=== PATIENT | female | born 1980 | race Caucasian/White ===

== ENCOUNTER 2021-12-16 17:29 | Emergency (ER) | payer OTHER, MEDICAID, SELFPAY ==
--- NOTE | ~2021-12-16 | CT_ITS ---
EXAMINATION: CT ABDOMEN AND PELVIS WITHOUT CONTRAST CLINICAL INFORMATION: Abdominal pain COMPARISON: None TECHNIQUE: Multidetector volumetric imaging was performed from the superior aspect of the liver through the pubic symphysis. Sagittal and coronal reformatted images were obtained on the technologist's workstation. This CT examination was performed using dose optimization techniques as appropriate, variously including the following: *Automated exposure control *Adjustment of mA and/or kV according to patient size (this includes techniques or standardized protocols for targeted exams where dose is matched to indication/reason for exam; i.e. extremities or head) *Use of iterative reconstruction technique DLP: 527 mGy-cm FINDINGS: LUNG BASES: The visualized lung bases are unremarkable. LIVER, GALLBLADDER, AND BILIARY TREE: The liver is normal in size, shape, and attenuation. No focal hepatic lesion or biliary ductal dilatation is present. Gallbladder unremarkable. PANCREAS: Unremarkable. SPLEEN: Unremarkable. ADRENAL GLANDS: Coarse calcifications throughout the right adrenal gland. Left adrenal gland is normal. KIDNEYS AND URETERS: The kidneys are normal in size, shape, and attenuation. No hydronephrosis or hydroureter. There are bilateral nonobstructive intrarenal calculi numbering at least 5 within the left kidney and 3 within the right kidney, all punctate in size. No ureteral calculi. No perinephric stranding. BLADDER: Unremarkable. GASTROINTESTINAL TRACT: The small and large bowel are unremarkable. The appendix is unremarkable. ABDOMINAL WALL: No significant hernia is appreciated. LYMPH NODES: Normal. VASCULAR: Unremarkable. PELVIC VISCERA: Hysterectomy. Ovaries unremarkable. OSSEOUS STRUCTURES: No acute or suspicious osseous abnormalities. Loss of disc space height associated endplate osteophytes present at L4-L5. CT/CT abdomen pelvis wo con IMPRESSION: * No acute findings within the abdomen or pelvis to explain the patient's symptomatology. * Numerous bilateral punctate nonobstructive intrarenal calculi. 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 * Hysterectomy.
--- NOTE | ~2021-12-16 | US_ITS ---
EXAMINATION: US PELVIS CLINICAL INFORMATION: Adnexal pain COMPARISON: None TECHNIQUE: Ultrasound of the pelvis is performed using both transabdominal and transvaginal transducers along with Doppler. Transvaginal imaging is performed due to inadequate visualization transabdominally. FINDINGS: Uterus: Surgically absent. Adnexa: Both ovaries are visualized. There is normal color flow to the adnexa. There is no ovarian torsion. There is no pelvic ascites or fluid collection. Right ovary measures 3.6 x 2.1 x 2.2 cm cm. No right adnexal mass. Normal arterial and venous spectral Doppler waveforms. There is a crenulated hypoechoic cyst 2.3 cm in greatest dimension in the left ovary consistent with a corpus luteum cyst. Left ovary measures 2.4 x 1.1 x 1.8 cm. No left adnexal mass. Normal arterial and venous spectral Doppler waveforms. US/US pelvic and transvaginal IMPRESSION: Normal ovaries bilaterally. There is a corpus luteum cyst in the right ovary, a normal benign physiologic finding for which no imaging follow-up is recommended.
[2021-12-16 20:02] VITALS: BP 132/94; PULSE 68; RESP 18; TEMP 37.2; O2SAT 99; BMI 25.7
[2021-12-16 20:17] LABS: MANUAL DIFF FLAG NO
[2021-12-16 20:18] LABS: Basophils Percent Auto 0.3 % (0-2); Eosinophils Absolute Auto 0.1 X10*3/uL (0.0-0.4); Eosinophils Percent Auto 1.6 % (0-4); Hemoglobin 14.9 g/dl (12.0-16.0); Imm Gran Abs Auto 0.02 X10*3/uL (0.00-0.03); Imm Gran Pct Auto 0.3 % (0.0-0.4); Lymphocytes Absolute Auto 2.5 X10*3/uL (1.2-4.9); Mean Corpuscular HGB Conc 33.9 g/dl (31.0-35.0); Mean Corpuscular Hemoglobin 30.3 pg (27.0-33.0); Mean Corpuscular Volume 89.6 fL (80.0-98.0); Mean Platelet Volume 8.8 fL (9.4-12.3); Monocytes Absolute Auto 0.5 X10*3/uL (0.1-1.2); Monocytes Percent Auto 6.4 % (2-11); Neutrophils Percent Auto 56.4 % (45-73); Platelet Count 302 X10*3/uL (160-400); Red Blood Count 4.91 X10*6/uL (4.20-5.50); Red Cell Distribution Width 11.9 % (11.0-16.0); White Blood Count 7.1 X10*3/uL (4.8-10.8)
[2021-12-16 20:32] LABS: Alanine Aminotransferase 24 U/L (0-31); Albumin Level 4.4 g/dL (3.5-5.0); Alkaline Phosphatase 59 U/L (39-117); Anion Gap 12 (12-20); Aspartate Amino Transferase 20 U/L (5-31); Bilirubin Total 0.4 mg/dL (0.0-1.0); Blood Urea Nitrogen 13 mg/dL (9-16); Calcium 9.4 mg/dL (8.4-10.2); Carbon Dioxide 25 mmol/L (22-29); Chloride 105 mmol/L (96-108); Estimated Glomerular Filt Rate > 60; Glucose Random 90 mg/dL (60-115); Potassium 4.2 mmol/L (3.3-5.1); Sodium 138 mmol/L (135-145); Total Protein 7.4 g/dL (6.5-8.0)
--- NOTE | 2021-12-16 22:47 | ED_ITS ---
HPI - Abdominal Pain General Chief Complaint: Abdominal Pain Stated Complaint: Abdominal pain Source: patient Mode of arrival: ambulatory Limitations: no limitations History of Present Illness HPI narrative: 41-year-old female presents with sudden onset of severe lower abdominal pain that started approximately 4 days ago. She had called her PCP and was referred to the emergency department for CT scan as she does have polycystic ovarian syndrome. She states that her abdomen has been bloated since the pain started and has having a difficult time with bowel movements. MD elicited complaint: abdominal pain Pertinent past history: none Onset (ago): day(s) (4) Pain Consistency: constant Location: suprapubic Severity: severe Pain scale (0-10): 10 Quality: stabbing and sharp Radiation: LLQ Migration to: no migration Exacerbating factors: bowel movement and movement Relieving factors: nothing Associated symptoms: diarrhea Treatments prior to arrival: NSAIDs Related Data Home Medications Medication Instructions Recorded Confirmed bupropion HCl 75 mg tablet 50 mg PO DAILY 12/16/21 12/16/21 metformin 500 mg tablet 200 mg PO DAILY 12/16/21 12/16/21 Previous Rx's Medication Instructions Recorded oxycodone 5 mg tablet 5 mg PO Q8H PRN pain 3 days #9 tabs 12/17/21 tamsulosin 0.4 mg capsule (Flomax) 0.4 mg PO DAILY 14 days #14 caps 12/17/21 Allergies Allergy/AdvReac Type Severity Reaction Status Date / Time No Known Allergies Allergy Unknown Unverified 03/25/20 15:50 Review of Systems Review of Systems Constitutional: No Fever, No Chills ENT/Mouth: No Ear Pain, No Hoarseness, No sore throat Eyes: No Eye Pain, No Swelling, No Redness, No Foreign Body Cardiovascular: No Chest Pain, No SOB Respiratory: No Cough, No Dyspnea Gastrointestinal: No Nausea, No Vomiting, positive Diarrhea, positive abdominal Pain Genitourinary: Positive adnexal tenderness, No Dysuria, No Hematuria Musculoskeletal: No joint pain, No Myalgias, No Joint Swelling Skin: No Skin lacerations, No rash Neuro: No Weakness, No Numbness, No Paresthesias, No Loss of Consciousness, No Dizziness, No Headache Psych: No Anxiety/Panic, No Depression Heme/Lymph: no easy bruising, no Lymphadenopathy Endocrine: No Polyuria, No Polydipsia Yes all other systems are reviewed and are negative PMFSH Past Medical History Attestation statement: The following information was validated with the patient. Source: old records reviewed Social History Social History Advance Directives: No Patient : No Physical Exam ED Vital Signs: Vital Signs - 24 hr 12/16/21 20:02 12/16/21 23:59 12/17/21 00:46 Temperature 98.9 F Pulse Rate 68 59 Respiratory Rate 18 16 18 Blood Pressure 132/94 H 120/81 Pulse Oximetry 99 100 Oxygen Delivery Method Room Air Room Air BMI result Body Mass Index 25.7 Appearance: Alert. Oriented X3. Moderate distress. Eyes: Pupils equal, round and reactive to light. ENT: Pharynx normal. Neck: Normal inspection. Neck supple. CVS: Normal heart rate and rhythm. Pulses normal. Respiratory: No respiratory distress. Breath sounds normal. Abdomen: Soft and suprapubic tenderness with left adnexal tenderness. Skin: Skin warm and dry. Normal skin color. Normal skin turgor. Extremities: No lower extremity edema. Gait well balanced well coordinated. Neuro: No motor deficit. No sensory deficit. Cranial nerves 2-12 intact. Course Course Course Narrative: 41-year-old female presents with severe abdominal pain that started suddenly approximately 4 days ago. Pain is colicky and has not resolved. Does have a history of polycystic ovarian syndrome. She has had a partial hysterectomy. She is concerned about ovarian torsion. Will order CT scan of abdomen and pelvis with pelvic ultrasound. Labs drawn while patient was in the emergency department waiting room. Labs are unremarkable. However physical exam indicates adnexal tenderness as well as suprapubic tenderness. 01:18 CT scan indicates bilateral renal stones. Will treat with Flomax and give oxycodone for pain management. Will have patient follow-up with Urology. Patient verbalized understanding of and agrees to plan of care to discharge home. Verbalized understanding of signs and symptoms indicating need for emergent intervention MDM - Abdominal Pain Differential Diagnosis Differential diagnosis: Likely abdominal pain, acute appendicitis, calculus of kidney, constipation and ovarian cyst Differential diagnosis narrative:: Ovarian torsion Medical Records Attestation: I reviewed the patient's medical records. Lab Data Attestation: I reviewed the patient's lab results. Result diagrams: 12/16/21 20:08 12/16/21 20:08 Labs: Lab Results 12/16/21 12/16/21 12/17/21 Range/Units 20:08 20:08 00:03 WBC 7.1 (4.8-10.8) X10*3/uL RBC 4.91 (4.20-5.50) X10*6/uL Hgb 14.9 (12.0-16.0) g/dl Hct 44.0 (37.0-47.0) % MCV 89.6 (80.0-98.0) fL MCH 30.3 (27.0-33.0) pg MCHC 33.9 (31.0-35.0) g/dl RDW 11.9 (11.0-16.0) % Plt Count 302 (160-400) X10*3/uL MPV 8.8 L (9.4-12.3) fL Immature Gran % (Auto) 0.3 (0.0-0.4) % Neut % (Auto) 56.4 (45-73) % Lymph % (Auto) 35.0 (20-40) % [place] % (Auto) 6.4 (2-11) % Eos % (Auto) 1.6 (0-4) % Baso % (Auto) 0.3 (0-2) % Lymph # (Auto) 2.5 (1.2-4.9) X10*3/uL [place] # (Auto) 0.5 (0.1-1.2) X10*3/uL Eos # (Auto) 0.1 (0.0-0.4) X10*3/uL Baso # (Auto) 0.0 (0.0-0.2) X10*3/uL Abs Immat Gran (auto) 0.02 (0.00-0.03) X10*3/uL Absolute Neuts (auto) 4.0 (2.0-8.3) x10*3/uL Absolute Nucleated RBC 0.000 (0.0-0.012) X10*3/uL Nucleated RBC % (auto) 0.0 (0.0-0.2) /100WBC Sodium 138 (135-145) mmol/L Potassium 4.2 (3.3-5.1) mmol/L Chloride 105 (96-108) mmol/L Carbon Dioxide 25 (22-29) mmol/L Anion Gap 12 (12-20) BUN 13 (9-16) mg/dL Creatinine 0.75 (0.5-1.4) mg/dL Estim Creat Clear Calc 99.0 Estimated GFR > 60 Random Glucose 90 (60-115) mg/dL Calcium 9.4 (8.4-10.2) mg/dL Total Bilirubin 0.4 (0.0-1.0) mg/dL AST 20 (5-31) U/L ALT 24 (0-31) U/L Alkaline Phosphatase 59 (39-117) U/L Total Protein 7.4 (6.5-8.0) g/dL Albumin 4.4 (3.5-5.0) g/dL Urine Color YELLOW Urine Appearance CLOUDY Urine pH 7.0 (5.0-8.0) Ur Specific [place] 1.020 (1.005-1.025) Urine Protein NEG (NEG-TRACE) MG/DL Urine Glucose (UA) NEG (NEG) MG/DL Urine Ketones NEG (NEG) MG/DL Urine Blood NEG (NEG) Urine Nitrite NEG (NEG) Ur Leukocyte Esterase NEG (NEG) Imaging Data Pelvic ultrasound: Attestation: I personally reviewed and interpreted this imaging study as follows: Radiologist's impression: EXAMINATION:? US PELVIS CLINICAL INFORMATION:? Adnexal pain COMPARISON: None TECHNIQUE: Ultrasound of the pelvis is performed using both transabdominal and transvaginal transducers along with Doppler. Transvaginal imaging is performed due to inadequate visualization transabdominally. FINDINGS: Uterus: Surgically absent. Adnexa: Both ovaries are visualized. There is normal color flow to the adnexa. There is no ovarian torsion.? There is no pelvic ascites or fluid collection. Right ovary measures 3.6 x 2.1 x 2.2 cm cm. No right adnexal mass. Normal arterial and venous spectral Doppler waveforms. There is a crenulated hypoechoic cyst 2.3 cm in greatest dimension in the left ovary consistent with a corpus luteum cyst. Left ovary measures 2.4 x 1.1 x 1.8 cm. No left adnexal mass. Normal arterial and venous spectral Doppler waveforms. US/US pelvic and transvaginal IMPRESSION: Normal ovaries bilaterally. ? There is a corpus luteum cyst in the right ovary, a normal benign physiologic finding for which no imaging follow-up is recommended. CT abdomen pelvis: Attestation: I personally reviewed and interpreted this imaging study as follows: Radiologist's impression: FINDINGS: LUNG BASES: The visualized lung bases are unremarkable.? LIVER, GALLBLADDER, AND BILIARY TREE: The liver is normal in size, shape, and attenuation. No focal hepatic lesion or biliary ductal dilatation is present. Gallbladder unremarkable.? PANCREAS: Unremarkable.? SPLEEN: Unremarkable.? ADRENAL GLANDS: Coarse calcifications throughout the right adrenal gland. Left adrenal gland is normal.? KIDNEYS AND URETERS: The kidneys are normal in size, shape, and attenuation. No hydronephrosis or hydroureter. There are bilateral nonobstructive intrarenal calculi numbering at least 5 within the left kidney and 3 within the right kidney, all punctate in size. No ureteral calculi. No perinephric stranding. ? BLADDER: Unremarkable.? GASTROINTESTINAL TRACT: The small and large bowel are unremarkable. The appendix is unremarkable.? ABDOMINAL WALL: No significant hernia is appreciated.? LYMPH NODES: Normal. VASCULAR: Unremarkable. PELVIC VISCERA: Hysterectomy. Ovaries unremarkable.? OSSEOUS STRUCTURES: No acute or suspicious osseous abnormalities. Loss of disc space height associated endplate osteophytes present at L4-L5. CT/CT abdomen pelvis wo con IMPRESSION: *? No acute findings within the abdomen or pelvis to explain the patient's symptomatology. *? Numerous bilateral punctate nonobstructive intrarenal calculi. *? 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 *? Hysterectomy. Discharge Plan Discharge Clinical Impression: Calculus of kidney Patient Disposition: Home, Self-Care Instructions: Kidney Stones (ED) Additional Instructions: You were evaluated for abdominal pain. CT scan indicates bilateral kidney stones. Please take Flomax on a daily for the next 14 days. Take oxycodone 5 mg every 8 hours as needed for pain management. This medication is a narcotic and has high risk for addiction and abuse. Do not drive or operate machinery while taking this medication. This medication can cause drowsiness, increased risk for falls, delay reaction time, and cause constipation. Please take MiraLax daily while taking this medication. MiraLax can be purchased o [id number] Follow-up with Dr. Vinson. Dr. Vinson is urologist. Please call and request an appointment. 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 Please follow-up with primary care regarding this incidental finding. Thank you for choosing this emergency department for evaluation. Please follow-up with primary care physician as needed. Return to the emergency department for any new, concerning, or worsening symptoms. Prescriptions: New tamsulosin [Flomax] 0.4 mg capsule 0.4 mg PO DAILY 14 Days Qty: 14 0RF oxycodone 5 mg tablet 5 mg PO Q8H PRN (Reason: pain) 3 Days Qty: 9 0RF Rx Instructions: Partial Fill upon patient request. Bilateral renal stones No Action metformin 500 mg Tablet 200 mg PO DAILY bupropion HCl [Wellbutrin] 75 mg Tablet 50 mg PO DAILY Referrals: Rick Vinson MD [Physician] - (Bilateral renal stones) Dominick Richardson MD [Primary Care Provider] - Stand Alone Forms: Work/School Release
[2021-12-16 23:59] VITALS: BP 120/81; PULSE 59; RESP 16; O2SAT 100
--- NOTE | 2021-12-17 00:04 | PC.NURSE ---
pt a&ox3, vss, c/o 01/15 pain lower abd/pelvic starting 12/13/21. urine sample obtained and sent to lab.
[2021-12-17 00:10] LABS: Appearance Urine CLOUDY; Color Urine YELLOW; Glucose Urine UA NEG (NEG); Leukocyte Esterase Urine NEG (NEG); Nitrite Urine NEG (NEG); Urine Blood NEG (NEG); Urine Ketones NEG (NEG); Urine Protein NEG (NEG-TRACE)
[2021-12-17 00:46] VITALS: RESP 18
[2021-12-17] MEDS: Morphine Sulfate 4 MG/ML CARTRIDGE IVPUSH (00:46)
--- NOTE | 2021-12-17 00:49 | PC.NURSE ---
pt medicated for 7/[address] results.
[2021-12-17] MEDS: oxyCODONE HCl Immed Release 5 MG TABLET PO (01:44)
[2021-12-17] MEDS: Tamsulosin HCL 0.4 MG CAPSULE PO (01:44)
--- NOTE | 2021-12-17 01:50 | PC.NURSE ---
medicated per provider order.
== END 2021-12-17 01:51 | disposition home or self-care (01) ==
PROVIDERS: Emergency Provider Emergency Medicine; PCP Internal Medicine
DX: N20.0 Calculus of kidney (principal); E28.2 Polycystic ovarian syndrome
CPT/HCPCS: 36415; 74176; 76830; 76856; 80053; 81003; 85025; 96374; 99284; J2270

== ENCOUNTER 2023-08-31 19:48 | Emergency (ER) | payer OTHER, MEDICAID, SELFPAY ==
--- NOTE | 2023-08-31 21:05 | PC.NURSE ---
Patient reports symptoms resolved and she is leaving. Patient reports she will return to ED if symptoms persist or she develops new symptoms.
== END 2023-08-31 21:12 | disposition left against medical advice (07) ==
LOC: HO.ED 21:13
PROVIDERS: Emergency Provider Emergency Medicine; PCP Internal Medicine
DX: R42 Dizziness and giddiness (principal); R11.2 Nausea with vomiting, unspecified